=== PATIENT | female | born 1990 | race Caucasian/White ===

== ENCOUNTER → 2017-11-11 13:52 | Outpatient (CLI) | payer OTHER, SELFPAY ==
--- NOTE | 2017-11-11 | US_ITS ---
US OB biophysical profile, US OB follow up, US SD Ratio umbilical artery: Indication: Large for gestational age ITS.REASON: LGA ORDERING PHYSICIAN: Zeeshan Zaidi MD PATIENT AGE: 27 years FINDINGS: The following parameters are obtained: Average ultrasound age is 31 weeks 0 days. Estimated due date by ultrasound is 12/16/2017. Estimated due date by last menstrual period is 01/01/2018 an estimated due date by previous ultrasound was 12/29/2017.. Estimated weight is 2385 g. This is 86 percentile based on last menstrual period BPD: 37 weeks 5 days OFD: 32 weeks 0 days HC: 34 weeks 3 days AC: 33 weeks 6 days FL: 33 weeks 6 days heart rate: 135 bpm. HC/AC: 1.03 Cephalic index: 90% FL/BPD: 71% FL/AC: 22% Amniotic fluid index: 15 cm Qualitative AFV: 2 breathing movements: 2 Gross body movements: 2 Tone: 2 Biophysical profile score: All Doppler evaluation of the umbilical artery: SD ratio: 2.7 Resistive index: 0.63 No obvious anomalies evident. Placenta: Anterior and lateral Cervix: Appears closed and measures 3 cm IMPRESSION: Live intrauterine gestation in cephalic presentation with an average ultrasound age of 31 weeks and 0 days. Estimated due date by ultrasound is 12/16/2017. Estimated due date by last menstrual period is 01/01/2018. The estimated weight is 2385 g which is a 86 percentile. No obvious anomalies. Biophysical profile 8 of 8 with average amniotic fluid volume an unremarkable umbilical artery Doppler
== END ==
PROVIDERS: Family Provider Internal Medicine Adolescent Medicine; PCP Internal Medicine Adolescent Medicine; Visit Provider Nurse Practitioner Obstetrics & Gynecology
DX: O36.63X0 Maternal care for excessive fetal growth, third trimester, not applicable or unspecified (principal)
CPT/HCPCS: 76816; 76819; 76820

== ENCOUNTER → 2017-12-01 18:11 | Outpatient (REF) | payer OTHER, SELFPAY | LOC: LAB 18:11 | PROVIDERS: Visit Provider Nurse Practitioner Obstetrics & Gynecology | DX: Z34.90 Encounter for supervision of normal pregnancy, unspecified, unspecified trimester (principal) | CPT/HCPCS: 86403 ==

== ENCOUNTER 2017-12-05 10:13 | Outpatient (CLI) | payer OTHER, SELFPAY ==
[2017-12-05 10:41] VITALS: BP 115/67; PULSE 133; RESP 28; TEMP 36.4; O2SAT 98; BMI 42.7
[2017-12-05 11:07] LABS: Microscopic, Urine URINE MICROSCOPIC (MICROSCOPIC)
[2017-12-05 11:08] LABS: Appearance,Urine SL CLOUDY (Clear); Bilirubin,Urine Negative (Negative); Blood, Urine Negative (Negative); Color,Urine YELLOW (Yellow); Glucose,Urine (UA) Negative (Negative); Ketones,Urine TRACE (Negative); Leukocyte Esterase,Urine 1+ (Negative); Nitrate,Urine Negative (Negative); PH,Urine 6.5 (5.0-8.5); Protein,Urine TRACE (Negative); Urobilinogen,Urine 0.2 EU/dl (0.2)
[2017-12-05 12:19] LABS: Basophils % 0.3 % (0.1-2.0); Eosinophils # 0.2 K/mm3 (0.0-0.4); Eosinophils % 2.3 % (0.1-12.0); Hematocrit 31.8 % (37.0-47.0); Hemoglobin 10.1 g/dL (12.2-16.2); Lymphocytes # 1.4 K/mm3 (0.7-4.5); Lymphocytes % 20.9 K/mm3 (10-50); Mean Corpuscular HGB Conc 31.9 g/dL (31.8-35.4); Mean Corpuscular Hemoglobin 23.7 pg (27.0-31.2); Mean Corpuscular Volume 74.4 fl (81-99); Mean Platelet Volume 9.3 fl (7.4-10.4); Monocytes # 0.4 K/mm3 (0.1-1.0); Monocytes % 5.9 % (1.7-9.3); Neutrophils # 4.7 K/mm3 (1.8-7.8); Neutrophils % 70.6 % (37.0-80.0); Platelet Count 169 K/mm3 (142-424); Red Blood Count 4.28 M/mm3 (4.20-5.40); Red Cell Distribution Width 15.8 % (11.5-17.5); White Blood Count 6.7 K/mm3 (4.8-10.8)
[2017-12-05 12:24] LABS: Anion Gap 10.9 mEq/L (5-15); Blood Urea Nitrogen 9 mg/dL (7-18); Carbon Dioxide 24 mmol/L (21.0-32.0); Chloride 106 mmol/L (98-107); Creatinine Clearance Estimated 220 mL/min (0-300); Creatinine,Serum 0.29 mg/dL (0.55-1.02); Estimated Glomerular Filt Rate 278 ml/min (>60); GFR (African American) 336 ML/MIN (>60); Glucose 88 mg/dL (74-106); Potassium 3.9 mmoL/L (3.5-5.1); Sodium 137 mmol/L (136-145)
[2017-12-05 12:47] LABS: Bacteria,Urine 1+ /lpf; Mucus,Urine 1+ /lpf
== END 2017-12-05 14:00 | disposition home or self-care (01) ==
LOC: OBOUT 10:15 → OB 10:17
PROVIDERS: PCP Internal Medicine Adolescent Medicine; Visit Provider Nurse Practitioner Obstetrics & Gynecology
DX: O26.93 Pregnancy related conditions, unspecified, third trimester (principal); Z3A.36 36 weeks gestation of pregnancy; R42 Dizziness and giddiness; R11.0 Nausea; R20.2 Paresthesia of skin
CPT/HCPCS: 59025; 80048; 81001; 85025; 87086; 96360

== ENCOUNTER → 2017-12-15 14:25 | Outpatient (CLI) | payer OTHER, SELFPAY | PROVIDERS: Visit Provider Nurse Practitioner Obstetrics & Gynecology | DX: R00.0 Tachycardia, unspecified (principal) | CPT/HCPCS: 93005 ==

== ENCOUNTER 2017-12-24 05:27 | Inpatient (IN) | payer OTHER, SELFPAY ==
[2017-12-24] VITALS (11 sets, daily range): BP systolic 107–135; BP diastolic 40–106; PULSE 80–101; RESP 10–21; TEMP 36.4–36.8; O2SAT 92–99; BMI 44.1
[2017-12-24 06:03] LABS: Basophils % 0.4 % (0.1-2.0); Eosinophils # 0.2 K/mm3 (0.0-0.4); Eosinophils % 3.5 % (0.1-12.0); Hematocrit 34.1 % (37.0-47.0); Hemoglobin 10.8 g/dL (12.2-16.2); Lymphocytes # 1.7 K/mm3 (0.7-4.5); Lymphocytes % 29.3 K/mm3 (10-50); Mean Corpuscular HGB Conc 31.8 g/dL (31.8-35.4); Mean Corpuscular Volume 75.7 fl (81-99); Mean Platelet Volume 9.8 fl (7.4-10.4); Monocytes # 0.5 K/mm3 (0.1-1.0); Monocytes % 7.7 % (1.7-9.3); Neutrophils # 3.5 K/mm3 (1.8-7.8); Neutrophils % 59.2 % (37.0-80.0); Platelet Count 179 K/mm3 (142-424); Red Blood Count 4.51 M/mm3 (4.20-5.40); Red Cell Distribution Width 17.8 % (11.5-17.5)
[2017-12-24 06:14] LABS: Anion Gap 16.2 mEq/L (5-15); Blood Urea Nitrogen 9 mg/dL (7-18); Carbon Dioxide 21 mmol/L (21.0-32.0); Chloride 104 mmol/L (98-107); Creatinine Clearance Estimated 156 mL/min (0-300); Creatinine,Serum 0.41 mg/dL (0.55-1.02); Estimated Glomerular Filt Rate 186 ml/min (>60); GFR (African American) 225 ML/MIN (>60); Glucose 89 mg/dL (74-106); Potassium 4.2 mmoL/L (3.5-5.1); Sodium 137 mmol/L (136-145)
--- NOTE | 2017-12-24 07:12 | P.PN_ITS ---
[facility] Anesthesia Checklist - Patient Identification Patient Identification: Arm Band - Structural Data Admitted From: Home Planned Operative Procedure/s: primary c/s Consent for Planned Operative Procedure(s) Verified: Yes Verified Documents: Surgical Consent, History and Physical - NPO Status Verified Time NPO: 00:00 - Additional verifications Anesthesia Reactions: No - Airway Assessment C-Spine Mobility Assessed: Yes TMJ Mobility Assessed: Yes Dentition: Good Dentition - Neurological Assessment Level of Consciousness: Awake, Alert - Anesthesia Plan Anesthesia Risk discussed: Yes Anesthesia Plan: Verified ASA Class: II Anesthesia Type: Spinal [facility] Anesthesia HX I have reviewed the patient's past medical history: Yes Medical History: Denies:: Cancer, Diabetes Mellitus Type 1, Diabetes Mellitus Type 2, MRSA Other Medical History: Reports: Anemia Other Surgeries: Yes: No Previous Surgery, Dilation and Curettage Amputation: No Fractures: No *Family Hx:: Cancer, Coronary Artery Disease, Diabetes, Heart Attack, Hypertension
[2017-12-24 07:51] LABS: Cord Blood PH 7.38 (7.35-7.45)
--- NOTE | 2017-12-24 08:12 | HMH.OPNOTE ---
Date of procedure: 12/24/17 Pre-op Diagnosis:: Term , high head at term, large for gestational age Post-op diagnosis:: same Procedure performed:: Mammary lower segment transverse section Surgeon:: Zeeshan Zaidi MD CONTINUITY MANAGER:: Armen Jean Anesthesia: spinal Estimated blood loss (mL): 600 Clinical Note:: She is a 27-year-old 3 para 2 who was 39 weeks gestational age. She has had 2 previous vaginal deliveries and both babies were 7-1/2 pounds. This baby was thought to be over 10 pounds a week ago. The head was still high and given this fact and the fact that the baby was largely like to perform a primary lower segment transverse section. Operative findings:: She delivered a liveborn male child at 7:41 AM on the morning of December 24, 2017. The baby had Apgars of 8 at 1 minute and 9 at 5 minutes. He weighed 9 lbs. 6 oz. and was 19-1/2 inches long. There was a loose nuchal cord ?1. Ovaries and tubes appeared normal. Operative note:: She was taken to the operating room where epidural anesthesia was found be adequate. She was prepped and draped in normal sterile fashion in the supine position with a leftward tilt. A Ponce catheter was in the bladder. A Pfannenstiel skin incision was made with knife then carried through to the underlying layer of fascia with cautery. The fascia was opened in the midline with cautery and extended laterally using Reyez scissors. Kasie clamps were applied to the superior aspect of the fascial incision which was tented up and the underlying rectus muscles dissected off using cautery. The [place] clamps were then applied to the inferior aspect of the fascial incision which in a similar fashion was tented up and the underlying rectus muscles dissected off using cautery. The rectus muscles were then in the midline, the peritoneum identified, and entered sharply with Metzenbaum scissors. This incision was then extended superiorly and inferiorly with cautery. We had good visualization of the bladder inferiorly. The bladder peritoneum was then opened in the midline and extended laterally using Metzenbaum scissors. A bladder flap was created digitally. The lower blade of the Catracho was inserted so as to push the bladder out of the way. Transverse incision was made through the uterine muscle to the amnion. This incision was then extended laterally using fingers traction. The amnion was entered sharply with knife. There was clear amniotic fluid. The 's head was then delivered atraumatically. There was a loose nuchal cord which was easily reduced. This was followed by the anterior shoulder and the rest of the infant's body atraumatically. The oropharynx and nasopharynx were bulb suctioned. The infant was then handed off to Dr. Thomas who assigned Apgars of 8 at 1 minute and 9 at 5 minutes. We then obtained cord blood as well as cord pH. The pH was 7.38. Using gentle traction on the cord and countertraction on the fundus I was able to easily deliver the placenta intact. It had a normal three-vessel cord. The uterus was then cleared of clots and debris and exteriorized from the abdominal cavity. The uterine incision was then closed using running 0 Vicryl suture in a locked fashion. A second layer of the same suture was used to imbricate the first layer. The bladder peritoneum was then closed using running 2-0 Vicryl suture in a locked fashion. The gutters and cul-de-sac were then cleared of clots and debris and the uterus was returned the abdominal cavity. Once again hemostasis was assured. The peritoneum was grasped with Cassy clamps and closed using running 2-0 Vicryl suture. The rectus muscles were then reapproximated using running 0 Vicryl suture. The fascia was closed using running #1 Vicryl suture. The subcutaneous tissues were then irrigated with warm water followed by closure Beulah's fascia using running 2-0 Monocryl suture. The skin was closed with garfield. The skin was
--- NOTE | 2017-12-24 08:15 | P.OP_ITS ---
Date of procedure: 12/24/17 Pre-op Diagnosis:: Term , high head at term, large for gestational age Post-op diagnosis:: same Procedure performed:: Mammary lower segment transverse section Surgeon:: Zeeshan Zaidi MD BRASS BOBBIN WINDER:: Armen Jean Anesthesia: spinal Estimated blood loss (mL): 600 Clinical Note:: She is a 27-year-old 3 para 2 who was 39 weeks gestational age. She has had 2 previous vaginal deliveries and both babies were 7-1/2 pounds. This baby was thought to be over 10 pounds a week ago. The head was still high and given this fact and the fact that the baby was largely like to perform a primary lower segment transverse section. Operative findings:: She delivered a liveborn male child at 7:41 AM on the morning of December 24, 2017. The baby had Apgars of 8 at 1 minute and 9 at 5 minutes. He weighed 9 lbs. 6 oz. and was 19-1/2 inches long. There was a loose nuchal cord ?1. Ovaries and tubes appeared normal. Operative note:: She was taken to the operating room where epidural anesthesia was found be adequate. She was prepped and draped in normal sterile fashion in the supine position with a leftward tilt. A Ponce catheter was in the bladder. A Pfannenstiel skin incision was made with knife then carried through to the underlying layer of fascia with cautery. The fascia was opened in the midline with cautery and extended laterally using Reyez scissors. Kasie clamps were applied to the superior aspect of the fascial incision which was tented up and the underlying rectus muscles dissected off using cautery. The [place] clamps were then applied to the inferior aspect of the fascial incision which in a similar fashion was tented up and the underlying rectus muscles dissected off using cautery. The rectus muscles were then in the midline, the peritoneum identified, and entered sharply with Metzenbaum scissors. This incision was then extended superiorly and inferiorly with cautery. We had good visualization of the bladder inferiorly. The bladder peritoneum was then opened in the midline and extended laterally using Metzenbaum scissors. A bladder flap was created digitally. The lower blade of the Catracho was inserted so as to push the bladder out of the way. Transverse incision was made through the uterine muscle to the amnion. This incision was then extended laterally using fingers traction. The amnion was entered sharply with knife. There was clear amniotic fluid. The 's head was then delivered atraumatically. There was a loose nuchal cord which was easily reduced. This was followed by the anterior shoulder and the rest of the infant's body atraumatically. The oropharynx and nasopharynx were bulb suctioned. The infant was then handed off to Dr. Thomas who assigned Apgars of 8 at 1 minute and 9 at 5 minutes. We then obtained cord blood as well as cord pH. The pH was 7.38. Using gentle traction on the cord and countertraction on the fundus I was able to easily deliver the placenta intact. It had a normal three-vessel cord. The uterus was then cleared of clots and debris and exteriorized from the abdominal cavity. The uterine incision was then closed using running 0 Vicryl suture in a locked fashion. A second layer of the same suture was used to imbricate the first layer. The bladder peritoneum was then closed using running 2-0 Vicryl suture in a locked fashion. The gutters and cul-de-sac were then cleared of clots and debris and the uterus was returned the abdominal cavity. Once again hemostasis was assured. The peritoneum was grasped with Cassy clamps and closed using running 2-0 Vicryl suture. The rectus muscles were then reapproximated using
--- NOTE | 2017-12-24 08:16 | P.PN_ITS ---
[facility] Anesthesia Record Part I Intake, IV Amount: 1,000 Estimated blood loss (mL): 600 Urine output (mL): 100 Blood Pressure: 107/40 SaO2: 93 Pulse Rate: 101 Respiratory Rate: 10 Temperature: 98 F Patient is:: Awake, Stable Stable to PACU at:: 08:15
--- NOTE | 2017-12-24 08:16 | P.PN_ITS ---
[facility] Anesthesia Record Part II Discharge Time: 08:45 Destination: Obstetric PACU nurse assessment reviewed?: Yes Patient Condition:: Good Anesthesia Complications:: None
--- NOTE | 2017-12-24 08:25 | P.HP_ITS ---
OB - H&P: HPI Antepartum - History of Present Illness Chief complaint: Large for gestational age infant, high head at term. - History of Present Criteria for establishing EDC:: LMP confirmed by 1st trimester US care: good care Ultrasounds: normal 1st trimester US, normal mid trimester US Obstetrical complications: none Planning to breastfeed?: Yes [facility] History I have reviewed the patient's past medical history: Yes Medical History: Denies:: Cancer, Diabetes Mellitus Type 1, Diabetes Mellitus Type 2, MRSA Other Medical History: Reports: Anemia Other Surgeries: Yes: No Previous Surgery, Dilation and Curettage Amputation: No Fractures: No - *Social History Smoking Status: Never smoker Alcohol Intake: never Alcohol Intake Frequency:: holidays/special occasions only Substance Use Type: denies use Occupational Status: other Housing: house Household Members: significant other, children *Family Hx:: Cancer, Coronary Artery Disease, Diabetes, Heart Attack, Hypertension ROBOT DESIGNER history: Spontaneous Para: 2 Review of Systems - Review of Systems Review of systems:: pertinent systems reviewed and negative unless documented below Meds Home Medications Medication Instructions Recorded Confirmed Type ferrous sulfate 325 mg (65 mg 325 mg PO DAILY tab 11/04/17 12/24/17 History iron) tablet [id number]-Fe-FA 1 tab PO DAILY 11/04/17 12/24/17 History tablet Bisoprol/Hydrochlorothiazide 1 tab PO DAILY 12/24/17 12/24/17 History [Bisoprolol-Hctz 2.5-6.25 mg Tb] Allergies Allergy/AdvReac Type Severity Reaction Status Date / Time amoxicillin [AMOXICILLIN] Allergy Unknown Verified 12/19/17 09:06 metoclopramide Allergy Unknown DYSPHAGIA Verified 12/19/17 09:06 [METOCLOPRAMIDE] Penicillins [PENICILLINS] Allergy Unknown I-RASH Verified 12/19/17 09:06 OB - H&P: Exam - Physical Exam Vital signs: Temp Pulse Resp BP Pulse Ox 98 F 101 H 10 L 107/40 98 12/24/17 08:16 12/24/17 08:16 12/24/17 08:16 12/24/17 08:16 12/24/17 06:10 - Constitutional no acute distress OB - Results - Labs Labs: Short CBC 12/24/17 Range/Units 05:55 WBC 6.0 (4.8-10.8) K/mm3 Hgb 10.8 L (12.2-16.2) g/dL Hct 34.1 L (37.0-47.0) % Plt Count 179 (142-424) K/mm3 [facility] 12/24/17 05:55 Sodium 137 Potassium 4.2 Chloride 104 Carbon Dioxide 21 BUN 9 Creatinine 0.41 L Glucose 89 OB - A/P Antepartum (1) Fetopelvic disproportion, delivered Current visit: Yes Status: Acute (2) High head at term, delivered Current visit: Yes Status: Acute - Additional Plan Plan: other (We will plan a primary lower segment transverse section.) Planning to breastfeed?: Yes
--- NOTE | 2017-12-24 09:06 | SUR.PHASEI ---
pt transferred via bed to OB by Collette Vanegas RN and Tasneem Olivas RN
--- NOTE | 2017-12-24 11:59 | PC.NURSE ---
100 ml clear yellow urine drained from f/c at this time, [id number]
--- NOTE | 2017-12-24 12:39 | SUR.OPER ---
0741-Viable infant male born at this time
[2017-12-24 14:07] LABS: Microscopic,Cath URINE MICROSCOPIC (MICROSCOPIC)
[2017-12-24 14:11] LABS: Appearance,Urine/Cath CLEAR (Clear); Bilirubin,Cath Negative (Negative); Blood, Urine/Cath Negative (Negative); Color,Urine/Cath YELLOW (Yellow); Glucose,Urine/Cath (UA) Negative (Negative); Ketones,Urine/Cath Negative (Negative); Leukocyte Esterase,Cath Negative (Negative); Nitrate,Cath Negative (Negative); Protein,Urine/Cath Negative (Negative); Specific Gravity, Urine/Cath 1.025 (1.005-1.030); Urobilinogen,Cath 0.2 EU/dl (0.2)
[2017-12-24 14:40] LABS: WBC,Urine/Cath Occasional #/hpf (0-3)
[2017-12-24 14:41] LABS: Bacteria,Urine/Cath 1+ /lpf; Squamous Epithelial Ur./Cath Occasional #/hpf (0-5)
--- NOTE | 2017-12-24 14:58 | PC.NURSE ---
inserted per ANISA Penn
[2017-12-25 07:05] LABS: Hematocrit 30.4 % (37.0-47.0); Hemoglobin 9.8 g/dL (12.2-16.2)
--- NOTE | 2017-12-25 08:01 | P.PN_ITS ---
Internal Medicine - PN: Subj *Date: 12/25/17 *Time: 08:00 Interval history: She is doing well this morning. She is eating and drinking and ambulating. She is bottlefeeding. Her lochia is normal. Exam Vital signs and Labs for Last 24 Hours: Temp Pulse Resp BP Pulse Ox 98.1 F 83 18 125/78 96 12/24/17 16:00 12/24/17 16:00 12/24/17 16:00 12/24/17 16:00 12/24/17 16:00 Laboratory Results - last 24 hr 12/24/17 07:27: Urine Color Yellow, Urine Appearance Clear, Urine pH 6.0, Ur Specific [place] 1.025, Urine Protein Negative, Urine Glucose (UA) Negative, Urine Ketones Negative, Urine Blood Negative, Urine Nitrate Negative, Urine Bilirubin Negative, Urine Urobilinogen 0.2, Ur Leukocyte Esterase Negative, Urine RBC None, Urine WBC Occasional, Ur Squamous Epith Cells Occasional, Urine Bacteria 1+ 12/25/17 06:46: Hgb 9.8 L, Hct 30.4 L I & O for Last 24 hours: Intake & Output 12/22/17 12/23/17 12/24/17 12/25/17 11:59 11:59 11:59 11:59 Intake Total 1000 / 1000 1232 / 1232 Output Total 100 / 100 400 / 400 Balance 900 / 900 832 / 832 Weight 234 lb - Constitutional no acute distress Assessment and Plan (1) Fetopelvic disproportion, delivered Current visit: Yes Status: Acute Category: Medical Code(s): O33.9 - Maternal care for disproportion, unspecified (2) High head at term, delivered Current visit: Yes Status: Acute Category: Medical Code(s): O32.4XX0 - Maternal care for high head at term, not applicable or unspecified - Assessment and plan all Dx Assessment and Plan for all problems:: She is doing well this morning. We will plan to send her home in 48 hours.
[2017-12-26 06:39] LABS: Hematocrit 29.7 % (37.0-47.0)
--- NOTE | 2017-12-26 09:02 | HMH.ACPN2 ---
Internal Medicine - PN: Subj *Date: 12/26/17 *Time: 09:02 Interval history: She is doing well this morning. She is eating and drinking and ambulating. She is bottlefeeding. Her lochia is normal. Her pain is well controlled. Exam Vital signs and Labs for Last 24 Hours: Temp Pulse Resp BP Pulse Ox 98.1 F 83 18 125/78 96 12/24/17 16:00 12/24/17 16:00 12/24/17 16:00 12/24/17 16:00 12/24/17 16:00 Laboratory Results - last 24 hr 12/26/17 06:10: Hgb 9.0 L, Hct 29.7 L I & O for Last 24 hours: Intake & Output 12/23/17 12/24/17 12/25/17 12/26/17 11:59 11:59 11:59 11:59 Intake Total 1000 / 1000 1232 / 1232 Output Total 100 / 100 400 / 400 Balance 900 / 900 832 / 832 Weight 234 lb - Constitutional no acute distress Assessment and Plan (1) Fetopelvic disproportion, delivered Current visit: Yes Status: Acute Category: Medical Code(s): O33.9 - Maternal care for disproportion, unspecified (2) High head at term, delivered Current visit: Yes Status: Acute Category: Medical Code(s): O32.4XX0 - Maternal care for high head at term, not applicable or unspecified - Assessment and plan all Dx Assessment and Plan for all problems:: She is doing very well this morning. We will plan to send her home tomorrow.
--- NOTE | 2017-12-26 09:03 | HMH.DCSUM ---
General - General Admission date: 12/24/17 Discharge date: 12/27/17 HPI HPI: She is a 27-year-old 4 now para 3 aborta 1 who was 39 weeks gestational age. She has really large for gestational age and as result of was offered primary lower segment transverse section. The baby's head was quite high and was not engaged in the pelvis. Ultrasound showed that the baby weighed over 10 pounds. As result of that she was offered primary lower segment transverse section. Hospital Course Hospital Course: On for the 2017 she underwent a primary lower segment transverse section and delivered spontaneously a liveborn male child at 7:41 AM on the morning of December 24, 2017. The baby weighed 9 lbs. 6 oz. and was 19-1/4 inches long. He had Apgars of 8 at 1 minute and 9 at 5 minutes. She has done well and has remained afebrile throughout her hospitalization. She is eating and drinking and ambulating. She is bottlefeeding. Her lochia is normal. She has a B+ blood, she is rubella nonimmune and will receive MMR. She was group B streptococcus negative. She is discharged home to follow-up with me in 2 weeks time. Objective Vital signs: Temp Pulse Resp BP Pulse Ox 98.1 F 83 18 125/78 96 12/24/17 16:00 12/24/17 16:00 12/24/17 16:00 12/24/17 16:00 12/24/17 16:00 no acute distress Results Labs on day of discharge: Labs from last 24 hours 12/26/17 06:10 Hgb 9.0 L Hct 29.7 L DS: Diagnosis - Discharge Diagnosis (1) Fetopelvic disproportion, delivered Status: Acute (2) High head at term, delivered Status: Acute Discharge Plan - Patient Discharge Instructions ACTIVITY: No heavy lifting DIET: continue same diet - Follow up Plan Disposition: Home, Self-Correction Medications: Home Medications Medication Instructions Recorded Confirmed Type ferrous sulfate 325 mg (65 mg 325 mg PO DAILY tab 11/04/17 12/24/17 History iron) tablet [id number]-[id number]-Fe-FA 1 tab PO DAILY 11/04/17 12/24/17 History tablet Bisoprol/Hydrochlorothiazide 1 tab PO DAILY 12/24/17 12/24/17 History [Bisoprolol-Hctz 2.5-6.25 mg Tb] Prescriptions/Medication Reconciliation: Continue ferrous sulfate 325 mg (65 mg iron) tablet 325 mg PO DAILY tab [id number]-[id number]-Fe-FA tablet 1 tab PO DAILY Bisoprol/Hydrochlorothiazide [Bisoprolol-Hctz 2.5-6.25 mg Tb] 1 tab PO DAILY
--- NOTE | 2017-12-26 09:06 | P.DS_ITS ---
General - General Admission date: 12/24/17 Discharge date: 12/27/17 HPI HPI: She is a 27-year-old 4 now para 3 aborta 1 who was 39 weeks gestational age. She has really large for gestational age and as result of was offered primary lower segment transverse section. The baby's head was quite high and was not engaged in the pelvis. Ultrasound showed that the baby weighed over 10 pounds. As result of that she was offered primary lower segment transverse section. Hospital Course Hospital Course: On for the 2017 she underwent a primary lower segment transverse section and delivered spontaneously a liveborn male child at 7:41 AM on the morning of December 24, 2017. The baby weighed 9 lbs. 6 oz. and was 19-1/4 inches long. He had Apgars of 8 at 1 minute and 9 at 5 minutes. She has done well and has remained afebrile throughout her hospitalization. She is eating and drinking and ambulating. She is bottlefeeding. Her lochia is normal. She has a B+ blood, she is rubella nonimmune and will receive MMR. She was group B streptococcus negative. She is discharged home to follow-up with me in 2 weeks time. Objective Vital signs: Temp Pulse Resp BP Pulse Ox 98.1 F 83 18 125/78 96 12/24/17 16:00 12/24/17 16:00 12/24/17 16:00 12/24/17 16:00 12/24/17 16:00 no acute distress Results Labs on day of discharge: Labs from last 24 hours 12/26/17 06:10 Hgb 9.0 L Hct 29.7 L DS: Diagnosis - Discharge Diagnosis (1) Fetopelvic disproportion, delivered Status: Acute (2) High head at term, delivered Status: Acute Discharge Plan - Patient Discharge Instructions ACTIVITY: No heavy lifting DIET: continue same diet - Follow up Plan Disposition: Home, Self-Residential Medications: Home Medications Medication Instructions Recorded Confirmed Type ferrous sulfate 325 mg (65 mg 325 mg PO DAILY tab 11/04/17 12/24/17 History iron) tablet [id number]-[id number]-uet-Fe-FA 1 tab PO DAILY 11/04/17 12/24/17 History tablet Bisoprol/Hydrochlorothiazide 1 tab PO DAILY 12/24/17 12/24/17 History [Bisoprolol-Hctz 2.5-6.25 mg Tb] Prescriptions/Medication Reconciliation: Continue ferrous sulfate 325 mg (65 mg iron) tablet 325 mg PO DAILY tab [id number]-Kp-fkw-Fe-FA tablet 1 tab PO DAILY Bisoprol/Hydrochlorothiazide [Bisoprolol-Hctz 2.5-6.25 mg Tb] 1 tab PO DAILY
--- NOTE | 2017-12-26 10:34 | HMH.PHAVTE ---
[facility] Pharm[facility] VTE Monitoring - Patient Demographics Admission date: 12/24/17 Report Date: 12/26/17 Time: 10:34 Allergies/Adverse Reactions: Patient Allergies amoxicillin [AMOXICILLIN] Allergy (Unknown, Verified 12/19/17 09:06) metoclopramide [METOCLOPRAMIDE] Allergy (Unknown, Verified 12/19/17 09:06) DYSPHAGIA Penicillins [PENICILLINS] Allergy (Unknown, Verified 12/19/17 09:06) I-RASH Height: 1.55 m Weight: 106.141 kg Patient Problems: Current Active Problems Fetopelvic disproportion, antepartum (Acute) Fetopelvic disproportion, delivered (Acute) High head at term, delivered (Acute) - VTE Risk Labs: VTE Related Lab Results Hgb 9.0 g/dL (12.2-16.2) L 12/26/17 06:10 Hct 29.7 % (37.0-47.0) L 12/26/17 06:10 Plt Count 179 K/mm3 (142-424) 12/24/17 05:55 BUN 9 mg/dL (7-18) 12/24/17 05:55 Creatinine 0.41 mg/dL (0.55-1.02) L 12/24/17 05:55 Estimated Creat Clear 156 mL/min (0-300) 12/24/17 05:55 - Prophylaxis VTE Prophylaxis Ordered?: Yes Types of VTE Prophylaxis: IPCS Knee High Location of Applied Device: Bilateral Lower Extremeties
[2017-12-26 20:05] VITALS: BP 119/75; PULSE 89; RESP 18; TEMP 37.2; O2SAT 98
[2017-12-26 23:55] VITALS: BP 119/67; PULSE 72; RESP 18; TEMP 36.7; O2SAT 98
[2017-12-27 04:05] VITALS: BP 134/79; PULSE 90; RESP 18; TEMP 36.7
--- NOTE | 2017-12-27 08:56 | HMH.PNOBGP) ---
OB - PN: A/P - Plan Plan: routine postop care, discharge home, follow up 6 weeks - Time Spent With Patient Total time spent is greater than 50% in coordination of care (as documented) at patient's floor/unit and/or counseling patient: less than 15 minutes (Patient is 27 yo on POD #3, meeting all goals for discharge. Plan to go home today.) OB - PN: Subj Patient comments: no complaints, pain well controlled, tolerating diet, flatus present (Patient with no complaints today.) OB - PN: Obj Exam Vital signs: Temp Pulse Resp BP Pulse Ox 98.1 F 90 18 134/79 98 12/27/17 04:05 12/27/17 04:05 12/27/17 04:05 12/27/17 04:05 12/26/17 23:55 - Constitutional no acute distress - Routine Respiratory Exam Present: CTA bilaterally - Routine Cardiovascular Exam Present: RRR - Routine Abdominal Exam Present: soft, normoactive bowel sounds Fundus: Present: firm Comments: incision clean/dry/intact with garfield in place - Urinary Catheter Management Ponce Cath placed during this visit: yes Urethral indwelling: No Insertion date: 12/24/17 Insertion time: 07:27 OB - PN: Obj Data - Labs CBC & Chem 7: 12/26/17 06:10 12/24/17 05:55
== END 2017-12-27 10:45 | disposition home or self-care (01) | DRG 766 ==
PROVIDERS: Admitting Provider Nurse Practitioner Obstetrics & Gynecology; Family Provider Internal Medicine Adolescent Medicine; PCP Internal Medicine Adolescent Medicine; Visit Provider Nurse Practitioner Obstetrics & Gynecology
PROC: 10D00Z1 Extraction of Products of Conception, Low, Open Approach (ICD-10-PCS; CPT 59514; principal; 2017-12-24 07:30)
DX: O66.2 Obstructed labor due to unusually large fetus (principal); O64.8XX0 Obstructed labor due to other malposition and malpresentation, not applicable or unspecified; Z37.0 Single live birth; Z3A.39 39 weeks gestation of pregnancy; Z23 Encounter for immunization
CPT/HCPCS: 59514; 36415; 59025; 80048; 81001; 82800; 85014; 85018; 85025; 86850; 90707; J1956

== ENCOUNTER → 2017-12-31 17:21 | Outpatient (REF) | payer OTHER, SELFPAY | LOC: LAB 17:21 | PROVIDERS: Visit Provider Nurse Practitioner Obstetrics & Gynecology | DX: Z39.2 Encounter for routine postpartum follow-up (principal) | CPT/HCPCS: 87070; 87077; 87186; 87205 ==